=== PATIENT | female | born 1995 | race Two or more races ===

== ENCOUNTER 2018-10-05 10:25 | Day surgery (SDC) | payer OTHER ==
[~2018-10-05] VITALS: Ht 165.1 cm; Wt 73.5 kg
== END 2018-10-05 18:45 | disposition home or self-care (01) ==
LOC: ER 10:25 → CIR.AMB 12:29
DX: O03.4 Incomplete spontaneous abortion without complication (principal)

== ENCOUNTER 2018-12-05 13:57 | Emergency (ER) | payer OTHER ==
[~2018-12-05] VITALS: Ht 165.1 cm; Wt 76.7 kg
== END 2018-12-05 20:38 | disposition home or self-care (01) ==
LOC: ER 13:57
DX: J06.9 Acute upper respiratory infection, unspecified (principal)

== ENCOUNTER 2019-08-27 15:34 | Emergency (ER) | payer OTHER ==
[~2019-08-27] VITALS: Ht 165.1 cm; Wt 80.7 kg
[2019-08-27] MEDS ORDERED: PRENATALES (16:13)
[2019-08-27] MEDS ORDERED: LOTRISONE CREAM45 GM TOP (17:30)
[2019-08-27] MEDS ORDERED: BACTRIM DS TAB1 EACH PO (17:30)
== END 2019-08-27 17:35 | disposition home or self-care (01) ==
LOC: ER 15:34
DX: L30.8 Other specified dermatitis (principal)

== ENCOUNTER 2019-10-01 08:49 | Outpatient (CLI) | payer OTHER ==
[~2019-10-01] VITALS: Ht 167.6 cm; Wt 82.6 kg
[~2019-10-01 08:49] MED LIST: BACTRIM DS TAB1 EACH PO; LOTRISONE CREAM45 GM TOP; PRENATALES
[2019-10-01] MEDS ORDERED: [UNRECOGNIZED DRUG - OTHER] PO (11:00)
== END 2019-10-02 08:55 | disposition home or self-care (01) ==
LOC: OBS/DEL 08:49 → LDR 10-02 08:56 → OBS/DEL 10-02 08:56 → LDR 10-02 11:57
DX: O26.892 Other specified pregnancy related conditions, second trimester (principal); K52.89 Other specified noninfective gastroenteritis and colitis; J06.9 Acute upper respiratory infection, unspecified

== ENCOUNTER 2019-11-29 12:53 | Inpatient (IN) | payer OTHER ==
[~2019-11-29] VITALS: Ht 167.6 cm; Wt 3.6 kg
[~2019-11-29 12:53] MED LIST changes: +[UNRECOGNIZED DRUG - OTHER] PO
[2019-12-10] MEDS ORDERED: PRENATAL + DHA1 EAC1 PO (04:59)
[2020-01-01] MEDS ORDERED: FOLIC ACID1 MG PO (12:45)
== END 2020-01-04 11:11 | disposition home or self-care (01) | DRG 788 ==
LOC: OB/GYN 12-13 14:15 → LDR 01-01 06:18 → OB/GYN 01-01 06:18
PROVIDERS: ADMIT Obstetrics & Gynecology
PROC: 3E0P7VZ Introduction of Hormone into Female Reproductive, Via Natural or Artificial Opening (ICD-10-PCS; 2020-01-01)
PROC: 3E033VJ Introduction of Other Hormone into Peripheral Vein, Percutaneous Approach (ICD-10-PCS; 2020-01-01)
PROC: 4A1HXCZ Monitoring of Products of Conception, Cardiac Rate, External Approach (ICD-10-PCS; 2020-01-01)
PROC: 10D00Z1 Extraction of Products of Conception, Low, Open Approach (ICD-10-PCS; principal; 2020-01-01 16:00)
DX: O65.4 Obstructed labor due to fetopelvic disproportion, unspecified (principal); Z3A.39 39 weeks gestation of pregnancy; Z37.0 Single live birth

== ENCOUNTER 2019-12-10 02:40 | Outpatient (CLI) | payer OTHER ==
[2019-12-10] MEDS ORDERED: PRENATAL + DHA1 EAC1 PO (04:59)
== END 2019-12-10 11:27 | disposition home or self-care (01) ==
LOC: OBS/DEL 02:40
DX: O60.03 Preterm labor without delivery, third trimester (principal)

== ENCOUNTER → 2020-11-18 | Outpatient (CLI) | payer OTHER ==
[~2020-11-18] MED LIST changes: +FOLIC ACID1 MG PO; +PRENATAL + DHA1 EAC1 PO
== END | disposition home or self-care (01) ==
LOC: PRENATAL 14:58
PROVIDERS: ATTEND Obstetrics & Gynecology Maternal & Fetal Medicine
DX: O35.0XX1 Maternal care for (suspected) central nervous system malformation in fetus, fetus 1 (principal); O35.3XX1 Maternal care for (suspected) damage to fetus from viral disease in mother, fetus 1; O98.512 Other viral diseases complicating pregnancy, second trimester; O34.212 Maternal care for vertical scar from previous cesarean delivery; Z36.89 Encounter for other specified antenatal screening; Z3A.24 24 weeks gestation of pregnancy

== ENCOUNTER → 2021-01-07 | Outpatient (CLI) | payer OTHER | END | disposition home or self-care (01) | LOC: PRENATAL 11:00 | PROVIDERS: ATTEND Obstetrics & Gynecology Maternal & Fetal Medicine | DX: O26.843 Uterine size-date discrepancy, third trimester (principal); Z36.89 Encounter for other specified antenatal screening; Z3A.31 31 weeks gestation of pregnancy ==

== ENCOUNTER → 2021-02-11 | Outpatient (CLI) | payer OTHER | END | disposition home or self-care (01) | LOC: PRENATAL 09:42 | PROVIDERS: ATTEND Obstetrics & Gynecology Maternal & Fetal Medicine | DX: O35.0XX1 Maternal care for (suspected) central nervous system malformation in fetus, fetus 1 (principal); O26.843 Uterine size-date discrepancy, third trimester; O24.410 Gestational diabetes mellitus in pregnancy, diet controlled; Z36.89 Encounter for other specified antenatal screening; Z3A.36 36 weeks gestation of pregnancy ==

== ENCOUNTER 2021-03-02 08:15 | Inpatient (IN) | payer OTHER ==
[~2021-03-02] VITALS: Ht 167.6 cm; Wt 95.3 kg
== END 2021-03-07 14:53 | disposition home or self-care (01) | DRG 788 ==
LOC: O/R 03-04 05:59 → OB/GYN 03-04 05:59
PROVIDERS: ADMIT Obstetrics & Gynecology; ATTEND Obstetrics & Gynecology
PROC: 4A1HXFZ Monitoring of Products of Conception, Cardiac Rhythm, External Approach (ICD-10-PCS; 2021-03-04)
PROC: 10D00Z1 Extraction of Products of Conception, Low, Open Approach (ICD-10-PCS; principal; 2021-03-04 08:30)
DX: O34.211 Maternal care for low transverse scar from previous cesarean delivery (principal); O24.420 Gestational diabetes mellitus in childbirth, diet controlled; Z30.2 Encounter for sterilization; Z3A.39 39 weeks gestation of pregnancy; Z37.0 Single live birth